=== PATIENT | male | born 1950 | race Caucasian/White ===

== ENCOUNTER → 2021-11-10 | Outpatient (CLI) | payer MEDICARE, BC ==
--- NOTE | 2021-11-10 10:27 | REP ---
INDICATION: CHRONIC PAIN. COMPARISON: None. TECHNIQUE: Three views of the left shoulder were performed. FINDINGS: The acromioclavicular and glenohumeral relationships are within normal limits. There is no acute fracture or destructive osseous lesion. There is mild AC joint DJD IMPRESSION: No acute osseous abnormality <Electronically signed by Bobby Arenas > 11/10/21 1022
== END ==
LOC: M WUC 09:05
PROVIDERS: ATTEND Internal Medicine
DX: G89.29 Other chronic pain (principal)

== ENCOUNTER → 2021-12-24 | Outpatient (CLI) | payer MEDICARE, BC | LOC: M SOG 10:03 | PROVIDERS: ATTEND Orthopaedic Surgery Sports Medicine | DX: M25.512 Pain in left shoulder (principal); M25.511 Pain in right shoulder ==

== ENCOUNTER → 2022-01-28 | Outpatient (CLI) | payer MEDICARE, BC | LOC: M SOG 10:53 | PROVIDERS: ATTEND Orthopaedic Surgery | DX: M54.2 Cervicalgia (principal) ==

== ENCOUNTER → 2022-02-22 | Outpatient (CLI) | payer MEDICARE, BC ==
[~2022-02-22] MED LIST: GABA-282; LOSA100T45; METF10004; OMEP-173; SEMA1PEN2; SIMV40TA20; TAMS1CAP17
== END ==
LOC: M LABSMTC 11:33
PROVIDERS: ATTEND Orthopaedic Surgery
DX: Z01.818 Encounter for other preprocedural examination (principal); Z11.52 Encounter for screening for COVID-19; Z20.822 Contact with and (suspected) exposure to COVID-19; Z79.899 Other long term (current) drug therapy

== ENCOUNTER 2022-04-02 10:01 | Emergency (ER) | payer MEDICARE, BC ==
[~2022-04-02] VITALS: Ht 182.9 cm; Wt 122.9 kg
[~2022-04-02 10:01] MED LIST changes: -LOSA100T45; +LOSA100T45 PO; -METF10004; +METF10004 PO; -TAMS1CAP17; +TAMS1CAP17 PO
[2022-04-02] MEDS ORDERED: TADA5TAB PO (10:10)
[2022-04-02] MEDS ORDERED: LIDOCAINE 2% 5ML JELLY UROJET TOP ONE (10:40)
[2022-04-02 13:00] VITALS: BP 134/66
== END 2022-04-02 13:02 | disposition home or self-care (01) ==
LOC: M ED 10:01
DX: R33.9 Retention of urine, unspecified (principal); N40.1 Benign prostatic hyperplasia with lower urinary tract symptoms; E11.9 Type 2 diabetes mellitus without complications; I10 Essential (primary) hypertension; E78.00 Pure hypercholesterolemia, unspecified; K21.9 Gastro-esophageal reflux disease without esophagitis; Z79.899 Other long term (current) drug therapy; Z79.84 Long term (current) use of oral hypoglycemic drugs

== ENCOUNTER → 2022-05-06 | Outpatient (CLI) | payer MEDICARE, BC ==
[~2022-05-06] MED LIST changes: +TADA5TAB PO
[2022-05-08 16:10] LABS: PSA % FREE 15.4 % (.); PSA FREE 1.26 ng/mL; PSA TOTAL 8.2 ng/mL (0.0-4.0)
== END ==
LOC: M WUC 11:34
PROVIDERS: ATTEND Urology
DX: N40.0 Benign prostatic hyperplasia without lower urinary tract symptoms (principal); Z80.42 Family history of malignant neoplasm of prostate

== ENCOUNTER → 2022-09-14 | Outpatient (CLI) | payer MEDICARE, BC | LOC: M WUC 11:21 | PROVIDERS: ATTEND Urology | DX: Z79.899 Other long term (current) drug therapy (principal); Z80.42 Family history of malignant neoplasm of prostate ==

== ENCOUNTER → 2022-11-03 | Outpatient (REF) | payer MEDICARE, BC ==
[2022-11-03 17:28] LABS: RSV AMPLIFICATION NEGATIVE (NEGATIVE)
== END ==
LOC: M LAB REF 16:04
PROVIDERS: ATTEND Internal Medicine
DX: J06.9 Acute upper respiratory infection, unspecified (principal)

== ENCOUNTER → 2023-03-21 | Outpatient (REF) | payer MEDICARE, BC ==
[~2023-03-21] MED LIST changes: -LOSA100T45 PO; +LOSA100T46 PO
== END ==
LOC: M LAB REF 16:11
PROVIDERS: ATTEND Internal Medicine
DX: G60.9 Hereditary and idiopathic neuropathy, unspecified (principal); Z13.89 Encounter for screening for other disorder

== ENCOUNTER → 2023-08-16 | Outpatient (REF) | payer MEDICARE, BC | LOC: M LAB REF 11:17 | PROVIDERS: ATTEND Internal Medicine | DX: R19.7 Diarrhea, unspecified (principal) ==

== ENCOUNTER → 2023-09-14 | Outpatient (REF) | payer MEDICARE, BC ==
[2023-09-14 19:22] LABS: APPEARANCE, URINE CLEAR (CLEAR); BACTERIA, URINE AUTO NEGATIVE (NEGATIVE); BILIRUBIN, URINE AUTO NEGATIVE (NEGATIVE); BLOOD, URINE BLOOD NEGATIVE (NEGATIVE); COLOR, URINE YELLOW (YELLOW); GLUCOSE, URINE (UA) AUTO NEGATIVE (NEGATIVE); KETONE, URINE AUTO NEGATIVE (NEGATIVE); LEUKOCYTE ESTERASE, URINE AUTO NEGATIVE (NEGATIVE); MUCUS, URINE SMALL (NEGATIVE); NITRITE, URINE AUTO NEGATIVE (NEGATIVE); PROTEIN, URINE AUTO NEGATIVE (NEGATIVE); RBC, URINE AUTO 0 /HPF (0-3); SPECIFIC GRAVITY URINE AUTO 1.016 (1.002-1.035); SQUAMOUS EPITHELIAL CELL UR AU 0 /HPF (0-6); UROBILINOGEN, URINE AUTO 0.2 mg/dL (0.0-2.0); WBC, URINE AUTO 1 /HPF (0-3)
== END ==
LOC: M SMT 17:31
PROVIDERS: ATTEND Urology
DX: R35.0 Frequency of micturition (principal)

== ENCOUNTER → 2023-09-28 | Outpatient (REF) | payer MEDICARE, BC | LOC: M LAB REF 11:41 | PROVIDERS: ATTEND Internal Medicine | DX: G60.9 Hereditary and idiopathic neuropathy, unspecified (principal) ==

== ENCOUNTER → 2023-12-29 | Outpatient (REF) | payer MEDICARE, BC | LOC: M LAB REF 15:27 | PROVIDERS: ATTEND Internal Medicine | DX: R19.7 Diarrhea, unspecified (principal) ==

== ENCOUNTER → 2024-01-06 | Outpatient (CLI) | payer MEDICARE, BC | LOC: M RAD 12:46 | PROVIDERS: ATTEND Internal Medicine | DX: R91.1 Solitary pulmonary nodule (principal); N28.1 Cyst of kidney, acquired; K76.9 Liver disease, unspecified; N40.0 Benign prostatic hyperplasia without lower urinary tract symptoms ==

== ENCOUNTER → 2024-01-16 | Outpatient (REF) | payer MEDICARE, BC | LOC: M LAB REF 11:52 | PROVIDERS: ATTEND Internal Medicine | DX: R19.7 Diarrhea, unspecified (principal) ==

== ENCOUNTER → 2024-03-14 | Outpatient (REF) | payer MEDICARE, BC ==
[2024-03-14 19:02] LABS: APPEARANCE, URINE CLEAR (CLEAR); BACTERIA, URINE AUTO NEGATIVE (NEGATIVE); BILIRUBIN, URINE AUTO NEGATIVE (NEGATIVE); BLOOD, URINE BLOOD NEGATIVE (NEGATIVE); COLOR, URINE YELLOW (YELLOW); GLUCOSE, URINE (UA) AUTO 3+ mg/dL (NEGATIVE); KETONE, URINE AUTO NEGATIVE (NEGATIVE); LEUKOCYTE ESTERASE, URINE AUTO NEGATIVE (NEGATIVE); MUCUS, URINE SMALL (NEGATIVE); NITRITE, URINE AUTO NEGATIVE (NEGATIVE); PROTEIN, URINE AUTO NEGATIVE (NEGATIVE); RBC, URINE AUTO 1 /HPF (0-3); SPECIFIC GRAVITY URINE AUTO 1.026 (1.002-1.035); SQUAMOUS EPITHELIAL CELL UR AU 0 /HPF (0-6); UROBILINOGEN, URINE AUTO 0.2 mg/dL (0.0-2.0); WBC, URINE AUTO 2 /HPF (0-3)
== END ==
LOC: M SMT 17:06
PROVIDERS: ATTEND Urology
DX: N40.0 Benign prostatic hyperplasia without lower urinary tract symptoms (principal)

== ENCOUNTER → 2024-03-23 | Outpatient (CLI) | payer MEDICARE, BC | LOC: M LAB 08:48 | PROVIDERS: ATTEND Urology | DX: Z12.5 Encounter for screening for malignant neoplasm of prostate (principal) | CPT/HCPCS: 36415; G0103 ==

== ENCOUNTER → 2024-04-04 | Outpatient (REF) | payer MEDICARE, BC | LOC: M SFHCDERM 18:09 | PROVIDERS: ATTEND Physician Assistant | DX: L82.1 Other seborrheic keratosis (principal); L57.0 Actinic keratosis ==

== ENCOUNTER → 2024-05-24 | Outpatient (REF) | payer MEDICARE, BC | LOC: M SFHCDERM 13:00 | PROVIDERS: ATTEND Physician Assistant | DX: L82.0 Inflamed seborrheic keratosis (principal) ==

== ENCOUNTER → 2024-08-07 | Outpatient (CLI) | payer MEDICARE, BC ==
[~2024-08-07] MED LIST changes: +GABA-1172; -GABA-282
== END ==
LOC: M RAD 11:16
PROVIDERS: ATTEND Internal Medicine
DX: R91.8 Other nonspecific abnormal finding of lung field (principal); R06.00 Dyspnea, unspecified; R91.1 Solitary pulmonary nodule

== ENCOUNTER → 2024-09-13 | Outpatient (CLI) | payer MEDICARE, BC | LOC: M RAD 09:36 | DX: K76.0 Fatty (change of) liver, not elsewhere classified (principal); N28.1 Cyst of kidney, acquired; R19.7 Diarrhea, unspecified; R63.4 Abnormal weight loss; K76.89 Other specified diseases of liver; K57.30 Diverticulosis of large intestine without perforation or abscess without bleeding; Z86.0109 Personal history of other colon polyps; Z53.9 Procedure and treatment not carried out, unspecified reason ==

== ENCOUNTER → 2025-01-02 | Outpatient (CLI) | payer MEDICARE, BC ==
[~2025-01-02] MED LIST changes: -TADA5TAB PO; +TADA5TAB94 PO
== END ==
LOC: M WUC 10:35
PROVIDERS: ATTEND Internal Medicine
DX: Z01.810 Encounter for preprocedural cardiovascular examination (principal); M54.50 Low back pain, unspecified; M25.551 Pain in right hip; M25.552 Pain in left hip; M47.816 Spondylosis without myelopathy or radiculopathy, lumbar region; M16.0 Bilateral primary osteoarthritis of hip

== ENCOUNTER → 2025-01-15 | Outpatient (REF) | payer MEDICARE, BC | LOC: M SFHCDERM 13:05 | PROVIDERS: ATTEND Physician Assistant | DX: L82.0 Inflamed seborrheic keratosis (principal) ==

== ENCOUNTER → 2025-06-07 | Outpatient (REF) | payer MEDICARE, BC ==
[~2025-06-07] MED LIST changes: +TADA5TAB2 PO; -TADA5TAB94 PO
== END ==
LOC: M SFHCDERM 12:47
PROVIDERS: ATTEND Physician Assistant
DX: L72.0 Epidermal cyst (principal)

== ENCOUNTER → 2025-08-06 | Outpatient (REF) | payer MEDICARE, BC | LOC: M LAB REF 14:23 | PROVIDERS: ATTEND Internal Medicine | DX: E83.52 Hypercalcemia (principal); I50.32 Chronic diastolic (congestive) heart failure ==

== ENCOUNTER → 2025-08-14 | Outpatient (CLI) | payer MEDICARE, BC | LOC: M PLAIMG 13:43 | PROVIDERS: ATTEND Internal Medicine | DX: R91.8 Other nonspecific abnormal finding of lung field (principal) ==

== ENCOUNTER → 2025-09-20 | Outpatient (CLI) | payer MEDICARE, BC | LOC: M WUC 11:20 | PROVIDERS: ATTEND Urology | DX: Z12.5 Encounter for screening for malignant neoplasm of prostate (principal) | CPT/HCPCS: 36415; G0103 ==

== ENCOUNTER → 2025-10-09 | Outpatient (CLI) | payer MEDICARE, BC | LOC: M CARPUL 10:08 | PROVIDERS: ATTEND Internal Medicine | DX: R91.8 Other nonspecific abnormal finding of lung field (principal); R06.00 Dyspnea, unspecified; R60.9 Edema, unspecified ==

== ENCOUNTER → 2025-10-21 | Outpatient (CLI) | payer MEDICARE, BC | LOC: M WUC 11:23 | PROVIDERS: ATTEND Internal Medicine | DX: M25.561 Pain in right knee (principal) ==